=== PATIENT | female | born 1970 | race Two or more races ===

== ENCOUNTER 2017-11-27 13:12 | Emergency (ER) | payer OTHER ==
[2017-11-27 13:21] VITALS: BP 119/83
[2017-11-27] MEDS ORDERED: IBUPROFEN 600 MG TAB PO ONE (13:29)
--- NOTE | 2017-11-27 13:31 | EDPHY ---
H & P Time Seen by Provider: 11/27/17 13:16 HPI/ROS: CHIEF COMPLAINT: Right ankle and foot pain History by patient HISTORY OF PRESENT ILLNESS: 47-year-old woman presents complaining of pain in her right ankle and foot after an eversion injury walking down a adis angled slope from the parking lot at her work. 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 She was able to work for a few hours but continued to be painful to put weight on it so she decided to seek medical attention. She did take ibuprofen at around 7:00 a.m. About an hour after it happened. She denies any numbness tingling or other other pain or injury. REVIEW OF SYSTEMS: As in HPI, and all other systems reviewed and are negative Smoking Status: Never smoked Physical Exam: General Appearance: Alert and no distress. Head: Normocephalic, atraumatic Eyes: Pupils equal and round no injection. Extraocular movements are intact. Musculoskeletal: Neck is supple and nontender. Extremities: Right knee with full range of motion, no proximal fibular tenderness, right ankle positive swelling ecchymoses over lateral ankle and base of 4th and 5th metatarsal, positive tenderness at base of 5th metatarsal, positive lateral malleolar tenderness, minimal medial malleolar tenderness, decreased range of motion of right ankle secondary to pain, patient wiggles all toes, cap refills less than 3 sec, distal sensations intact Skin: No rashes or lesions except as described above. Constitutional: Initial Vital Signs Temperature (C) 37.3 C 11/27/17 13:17 Heart Rate 105 H 11/27/17 13:17 Respiratory Rate 16 11/27/17 13:17 Blood Pressure 119/83 H 11/27/17 13:17 O2 Sat (%) 96 11/27/17 13:17 O2 Delivery Mode Room Air Allergies/Adverse Reactions: No Known Allergies Allergy (Verified 05/17/14 14:11) Home Medications: Medication Instructions Recorded Glipizide 11/27/17 Lisinopril 11/27/17 SIMVASTATIN 11/27/17 MDM/Departure - MDM Medications Given: Discontinued Medications Ibuprofen (Motrin) 600 mg PO EDNOW ONE Stop: 11/27/17 13:30 Last Admin: 11/27/17 13:48 Dose: 600 mg ED Course/Re-evaluation: 47-year-old woman presents with eversion injury of her right ankle and foot. X- ray showed no evidence of fracture of the ankle or foot. Patient was placed in a stirrup brace. We discussed early mobility and rice treatment. Patient was given a dose of ibuprofen in the emergency department. She will be discharged home in stable condition. - Depart Disposition: Home, Routine, Self-Care Clinical Impression: Right ankle sprain Qualifiers: Encounter type: initial encounter Involved ligament of ankle: unspecified ligament Qualified Code(s): S93.401A - Sprain of unspecified ligament of right ankle, initial encounter Condition: Fair Instructions: Ankle Sprain (ED) Additional Instructions: You were seen by Dr. India Salas today. Your x-ray showed no evidence of fracture. Please keep your ankle elevated and put ice on it for 10-20 minutes at a time every few hours for the next 24 hr. You may put as much weight on it as you can tolerate. You may take ibuprofen 600 mg 4 times a day as needed for pain and swelling. Early mobility will help it heal quicker. You may wear the stirrup splint for comfort. I recommend switching this out for a soft lace-up splint as soon as possible. Please follow up with her primary care physician. Return for any worsening or new concerns. Stand Alone Forms: Work Limited Duty Referrals: IN,STATE [Other] - As per Instructions
== END 2017-11-27 14:10 | disposition home or self-care (01) ==
LOC: CED 13:12
DX: S93.401A Sprain of unspecified ligament of right ankle, initial encounter (principal); W18.40XA Slipping, tripping and stumbling without falling, unspecified, initial encounter; Y92.480 Sidewalk as the place of occurrence of the external cause
CPT/HCPCS: 73610-PO; 73630-PO; L4350